=== PATIENT | female | born 1960 | race African-American/Black ===

== ENCOUNTER 2017-05-16 19:51 | Inpatient (IN) | payer BC ==
[~2017-05-16] VITALS: Ht 167.6 cm; Wt 82.0 kg
[2017-05-16 22:00] VITALS: BP 139/83; RESP 18
[2017-05-16 23:00] VITALS: BP 136/75; RESP 18
[2017-05-16 23:26] VITALS: Ht 167.6 cm; Wt 82.0 kg
[2017-05-17 02:00] VITALS: BP 134/78; RESP 18
[2017-05-17] MEDS ORDERED: LACTULOSE 30ML CUP PO PRN (02:30)
[2017-05-17] MEDS ORDERED: BISACODYL 10 MG SUPP PR PRN (02:30)
[2017-05-17] MEDS ORDERED: MAGNESIUM HYDROXIDE 30ML CUP PO PRN (02:30)
[2017-05-17] MEDS ORDERED: ACETAMINOPHEN 325 MG TAB PO PRN (02:30)
[2017-05-17] MEDS ORDERED: NITROGLYCERIN (SL) 0.4 MG TAB SL PRN (03:00)
[2017-05-17] MEDS ORDERED: HYDROCODONE/APAP (5/325) TAB PO PRN ×2 (04:00)
[2017-05-17 05:34] LABS: ADD UMIC NO; UR ASCORBIC ACID NEGATIVE (NEGATIVE); UR BILIRUBIN (Dip) NEGATIVE (NEGATIVE); UR BLOOD (Dip) NEGATIVE (NEGATIVE); UR CLARITY CLEAR (CLEAR); UR COLOR YELLOW (YELLOW); UR GLUCOSE (Dip) NEGATIVE (NEGATIVE); UR KETONES (Dip) NEGATIVE (NEGATIVE); UR LEUKOCYTE ESTERASE (Dip) NEGATIVE Leu/ul (NEGATIVE); UR NITRITE (Dip) NEGATIVE (NEGATIVE); UR SPECIFIC GRAVITY (Dip) 1.015 (1.003-1.030); UR TOTAL PROTEIN (Dip) NEGATIVE (NEGATIVE); UR UROBILINOGEN (Dip) 2+ mg/dL (NEGATIVE)
[2017-05-17] MEDS: PANTOPRAZOLE (EC) 40 MG TAB PO SCH (06:41)
[2017-05-17] MEDS: FUROSEMIDE 40 MG TAB PO SCH (06:41)
[2017-05-17 07:27] LABS: BASOPHIL # 0.1 10^3/ul (0.0-0.1); BASOPHILS % 0.7 % (0.0-2.0); EOSINOPHILS # 0.3 10^3/ul (0.0-0.5); EOSINOPHILS % 2.7 % (0.0-7.0); HEMOGLOBIN 11.7 g/dl (12.0-16.0); LYMPHOCYTES # 1.6 10^3/ul (0.8-2.9); LYMPHOCYTES % 13.1 % (15.0-51.0); MEAN CORPUSCULAR HEMOGLOBIN 22.5 pg (29.0-33.0); MEAN CORPUSCULAR HGB CONC 30.8 g/dl (32.0-37.0); MEAN CORPUSCULAR VOLUME 73.2 fl (82.0-101.0); MEAN PLATELET VOLUME 9.6 fl (7.4-10.4); MONOCYTE # 1.1 10^3/ul (0.3-0.9); MONOCYTES % 8.9 % (0.0-11.0); NEUTROPHIL # 8.8 10^3/ul (1.6-7.5); PLATELET COUNT 633 10^3/UL (140-415); RED BLOOD COUNT 5.19 10^6/ul (4.20-5.40); RED CELL DISTRIBUTION WIDTH 18.2 % (11.5-14.5); WHITE BLOOD COUNT 11.9 10^3/ul (4.8-10.8)
[2017-05-17 07:30] VITALS: BP_SYST 177; BP_DIAS 102; BP_DIAS 90; PULSE 100; RESP 20
[2017-05-17] MEDS ORDERED: ZOLPIDEM 5 MG TAB PO PRN (08:00)
[2017-05-17 08:06] LABS: ALBUMIN 3.7 g/dl (3.3-4.9); ALBUMIN/GLOBULIN RATIO 0.77; BILIRUBIN,INDIRECT 0.3 mg/dl (0-1.1); BILIRUBIN,TOTAL 0.3 mg/dl (0.2-1.3); CALCIUM 9.8 mg/dl (8.4-10.2); CREATININE 0.72 mg/dl (0.44-1.00); POTASSIUM 3.9 mmol/L (3.5-5.1); TOTAL PROTEIN 8.5 g/dl (6.1-8.1)
[2017-05-17] MEDS: PREGABALIN 25 MG CAP PO SCH ×2 (08:21→20:16)
[2017-05-17] MEDS: CLOPIDOGREL 75 MG TAB PO SCH (08:21)
[2017-05-17] MEDS: LOSARTAN 50 MG TAB PO SCH (08:21)
[2017-05-17] MEDS: DOCUSATE SODIUM 100 MG CAP PO SCH ×2 (08:22→20:16)
[2017-05-17] MEDS: APIXABAN 5 MG TABLET PO SCH ×2 (08:22→20:18)
[2017-05-17] MEDS: METOPROLOL (XL) 25 MG TAB PO SCH ×2 (08:22→20:17)
[2017-05-17] MEDS: LIDOCAINE 5% PATCH TD SCH (10:30)
[2017-05-17] MEDS: DILTIAZEM (CD) 180 MG CAP PO SCH (12:48)
[2017-05-17] MEDS: HYDROCODONE/APAP (5/325) TAB PO PRN ×2 (12:48→20:17)
--- NOTE | 2017-05-17 13:34 | CONS ---
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 ACTIVE COMORBIDITIES: 1. Atrial fibrillation. 2. Hypertension. 3. Pancreatitis. 4. History of stomach cancer. 5. History of cervical cancer. 6. Impairments in self-care, mobility and cognition. HISTORY OF PRESENT ILLNESS: The patient is a very pleasant 57-year-old female with a history of mul tiple medical comorbidities who was noted to have significant left-sided weakness, and difficulty wi th speech. A head CT was performed and the patient was noted to have right frontal infarct. The patient did require mechanical ventilation. The patient was eventually extubated. Patient note d to have significant impairments in self-care and mobility as compared to baseline. The patient de la rosa s been cleared to transfer to the rehabilitation unit for comprehensive interdisciplinary rehab care . FUNCTIONAL HISTORY: Prior to recent events, she was independent in self-care tasks and mobility. C urrently, the patient requires total assist for self-care activities, maximal assist to total assist for mobility tasks. I have reviewed the preadmission screen and the patient's current functional status is consistent wi th the preadmission screen. SOCIAL HISTORY: The patient lives at home with her and hopes to return there upon discharge . PAST MEDICAL HISTORY: 1. Atrial fibrillation. 2. Pancreatitis. 3. Stomach cancer. 4. Cervical cancer. 5. Rheumatic fever. 6. Questionable history of coronary artery disease. CURRENT MEDICATIONS: 1. Eliquis 25 mg p.o. b.i.d. 2. Lipitor 40 mg p.o. at bedtime. 3. Plavix 75 mg p.o. daily. 4. Cardizem-CD 180 p.o. daily. 5. Lasix 40 mg p.o. daily. 6. Cozaar 10 mg p.o. daily. 7. Metoprolol XL 25 mg p.o. b.i.d. 8. Protonix 40 mg p.o. daily. ALLERGIES: THE PATIENT WITH NO KNOWN DRUG ALLERGIES. PHYSICAL EXAMINATION: VITAL SIGNS: The patient is currently afebrile with stable vital signs. HEENT: The extraocular motions appear intact. The patient with decreased nasolabial fold. Orophar ynx clear. NECK: Supple. LUNGS: Clear anteriorly. CARDIAC: S1, S2. ABDOMEN: Soft, nontender, positive bowel sounds. NEUROLOGIC: She is awake and alert. She is oriented to person and hospital. She will follow simpl e 1-step commands. She has good strength in the right upper and lower extremity. She has flaccid l eft upper extremity. She has antigravity strength in the left lower extremity. PLAN: The patient has been admitted for comprehensive interdisciplinary acute rehab and is anticipa rocio to tolerate 3 hours of daily therapy in divided doses for at least 5/7 days a week. The treatme nt plan will include: 1. Physical therapy to focus on bed mobility, transfers, and household ambulation with the goal of having the patient reach standby assist level. 2. Occupational therapy to focus on hygiene, grooming, dressing, bathing, and toileting activities with the goal of having the patient reach a min to standby assist level. 3. Speech therapy for full cognitive assessment and retraining in addition to dysphagia management with the goal of having the patient return to baseline cognition and meet nutritional needs by mouth . 4. Rehabilitation nursing for carryover of therapeutic interventions, the goal of [place] and bladder, and the goal of patient and family education with regards to the aforementioned issue s. BARRIER: Weakness. INTERVENTION FOR BARRIER: Interdisciplinary approach. ESTIMATED LENGTH OF STAY: Fourteen days. DISPOSITION GOAL: Home. I acknowledge that I performed a full physical examination on this patient within 24 hours of admiss ion to the rehabilitation unit. I believe the patient is a good candidate for comprehensive interdi sciplinary rehab care and is anticipated to make reasonable goals in a reasonable period of time as outlined above. Dictated By: LEILA VO/HERON Conf#: [id number] DID#: [id number]
[2017-05-17 19:50] VITALS: BP 121/81; RESP 18
[2017-05-17] MEDS: SENNA TAB PO SCH (20:16)
[2017-05-17] MEDS: ATORVASTATIN 40 MG TAB PO SCH (20:16)
[2017-05-18 01:56] VITALS: BP 97/64; RESP 19
[2017-05-18] MEDS: HYDROCODONE/APAP (5/325) TAB PO PRN ×3 (05:09→19:52)
[2017-05-18] MEDS: FUROSEMIDE 40 MG TAB PO SCH (05:18)
[2017-05-18] MEDS: PANTOPRAZOLE (EC) 40 MG TAB PO SCH (05:18)
[2017-05-18 07:31] LABS: ABNORMAL IP MESSAGE 1; BASOPHIL # 0.1 10^3/ul (0.0-0.1); BASOPHILS % 0.6 % (0.0-2.0); EOSINOPHILS # 0.1 10^3/ul (0.0-0.5); EOSINOPHILS % 0.8 % (0.0-7.0); HEMATOCRIT 37.8 % (37.0-47.0); HEMOGLOBIN 11.5 g/dl (12.0-16.0); LYMPHOCYTES # 1.9 10^3/ul (0.8-2.9); LYMPHOCYTES % 11.9 % (15.0-51.0); MEAN CORPUSCULAR HEMOGLOBIN 22.1 pg (29.0-33.0); MEAN CORPUSCULAR HGB CONC 30.4 g/dl (32.0-37.0); MEAN CORPUSCULAR VOLUME 72.7 fl (82.0-101.0); MEAN PLATELET VOLUME 10.3 fl (7.4-10.4); MONOCYTE # 1.6 10^3/ul (0.3-0.9); MONOCYTES % 10.2 % (0.0-11.0); NEUTROPHIL # 12.2 10^3/ul (1.6-7.5); NEUTROPHILS % 75.9 % (39.0-77.0); PLATELET COUNT 659 10^3/UL (140-415)
[2017-05-18 07:37] LABS: POSITIVE DIFF @See below
[2017-05-18 07:48] LABS: CALCIUM 9.7 mg/dl (8.4-10.2); CREATININE 1.38 mg/dl (0.44-1.00); MAGNESIUM 1.8 mg/dl (1.7-2.5); PHOSPHORUS 4.2 mg/dl (2.5-4.9); POTASSIUM 3.7 mmol/L (3.5-5.1)
[2017-05-18 08:00] VITALS: BP 121/73; PULSE 95; RESP 18
[2017-05-18] MEDS: DOCUSATE SODIUM 100 MG CAP PO SCH ×2 (09:06→20:20)
[2017-05-18] MEDS: PREGABALIN 25 MG CAP PO SCH ×2 (09:06→20:20)
[2017-05-18] MEDS: CLOPIDOGREL 75 MG TAB PO SCH (09:06)
[2017-05-18] MEDS: APIXABAN 5 MG TABLET PO SCH ×2 (09:07→20:21)
[2017-05-18] MEDS: LOSARTAN 50 MG TAB PO SCH (09:08)
[2017-05-18] MEDS: METOPROLOL (XL) 25 MG TAB PO SCH ×2 (09:08→20:21)
[2017-05-18] MEDS: DILTIAZEM (CD) 180 MG CAP PO SCH (09:09)
[2017-05-18] MEDS: LIDOCAINE 5% PATCH TD SCH (09:13)
[2017-05-18] MEDS: ACETAMINOPHEN 325 MG TAB PO PRN (12:35)
[2017-05-18 15:32] VITALS: BP 121/73; RESP 18
--- NOTE | 2017-05-18 15:38 | PN ---
DATE: 05/18/2017 SUBJECTIVE: The patient is stable. No events overnight. The patient's pain is better controlled. No other events noted. OBJECTIVE: VITAL SIGNS: Blood pressure is 121/73, temperature 98.3, pulse 95, respiration 18. HEENT: Head is normocephalic. NECK: Supple. HEART: Regular rate. LUNGS: Show diminished breath sounds at base. ABDOMEN: Soft, nontender to palpation without rebound or guarding. EXTREMITIES: Negative for clubbing, cyanosis, no edema. DERMATOLOGIC: No rashes. MUSCULOSKELETAL: No joint effusions. NEUROLOGIC: No change in exam. MEDICATIONS: The patient's medications are reviewed. LABORATORY DATA: Shows white count 16.9, hemoglobin 9.5, platelet count is 659. Sodium 140, potass ium 3.7, BUN 17, creatinine 1.38. ASSESSMENT AND PLAN: This is a 57-year-old female who presents with: 1. Acute cerebrovascular accident with left-sided hemiparesis. The patient is currently stable. C ontdulce maria current medical management. Continue physical therapy. 2. Atrial fibrillation, currently rate controlled. Continue medical management with Eliquis and Ca rdizem. 3. Hypertension, well controlled. The patient now appears to be hypotensive. We will place parameters on blood pressure medications. Will hold Lasix and Cozaar. 4. Nonoliguric acute kidney injury with previously normal baseline creatinine. Etiology is likely hemodynamics. Will hold late diuretics and Losartan, monitor closely. 5. Leukocytosis, etiology unclear, possibly reactive. Will check a UA with microanalysis, urine cu ltures and chest x-ray. We will also check a procalcitonin level, place an ID consult for evaluatio n. Defer antibiotic therapy at this time. 6. Gastrointestinal and deep venous thrombosis prophylaxis. 7. Neuropathy. Continue Lyrica. 8. Chronic pain syndrome. Continue current pain regimen. 9. History of coronary artery disease. Continue current medical management. 10. History of stomach and cervical cancer. Dictated By: CHRISTOPHER WISEMAN/HERON Conf#: [id number] DID#: [id number]
--- NOTE | 2017-05-18 18:42 | RADRPT ---
PROCEDURE: XR Chest. CLINICAL INDICATION: Cough. TECHNIQUE: PA and lateral chest x-ray. COMPARISON: 02/18/2009 FINDINGS: There are prominent bronchovascular and interstitial lung markings. There is no focal consolidation. There is no evidence of pleural effusion. No pneumothorax identified. The heart size is large. The cardiomediastinal silhouette is otherwise unremarkable. The osseous structures are unremarkable. The soft tissues are within normal limits. IMPRESSION: 1. Prominent bronchovascular and interstitial lung markings. Differential diagnosis includes bronc hitis, interstitial edema, viral pneumonia, atypical pneumonia and interstitial lung disease. 2. Cardiomegaly. With a prominent lung markings, consider interstitial edema in the setting of mariola y CHF. 3. No evidence of lobar pneumonia. RPTAT: QQ .Khadar Farris MD, MD Date Time Electronically viewed and signed by .Khadar Farris MD, on 05/18/2017 18:42 .M/
[2017-05-18 20:00] VITALS: BP 109/73; RESP 18
[2017-05-18] MEDS: ATORVASTATIN 40 MG TAB PO SCH (20:21)
[2017-05-18] MEDS: SENNA TAB PO SCH (20:21)
--- NOTE | 2017-05-19 01:15 | CONS ---
DATE OF ADMISSION: 05/16/2017 DATE OF CONSULTATION: 05/18/2017 TYPE OF CONSULTATION: Infectious Disease. REASON FOR CONSULTATION: Antibiotic management. HISTORY OF PRESENT ILLNESS: Debo Shelton is a 57-year-old female with a history of multiple medica l problems who was noted to have significant left-sided weakness and difficulty with speech. She wa s found to have a right frontal infarct cerebrovascular accident with left-sided weakness. Past problems include: 1. Atrial fibrillation. 2. Hypertension. 3. History of pancreatitis. 4. History of stomach cancer. 5. History of cervical cancer. She now comes to the rehab with CVA and left-sided weakness as well as difficulty with speech. She did require mechanical ventilation, was eventually extubated. She has significant impairments in self-care and mobility. On admission, her white count was 11.9, H an d H 11.7 and 38, platelet count 633,000. On 05/18/2017, white count went up to 16,000. Her BUN and creatinine 17/1.38. Urine: 2+ urobilinogen, negative leukocyte esterase negative hemoglobin. Annette [facility] x-ray: No active cardiopulmonary disease. PAST MEDICAL HISTORY: Operations as outlined. FAMILY HISTORY: Noncontributory. SOCIAL HISTORY: She does not smoke, drink or abuse drugs. ALLERGIES: NONE TO PENICILLIN, SULFA OR FOODS. MEDICATIONS: Per chart. REVIEW OF SYSTEMS: As per HPI. PHYSICAL EXAMINATION: GENERAL: The patient is a well-developed, well-nourished female who is alert, responsive, in no acu te distress. VITAL SIGNS: Stable. She is afebrile. SKIN: Without generalized rash. HEENT: Within normal limits. NECK: Supple. LYMPH NODES: None palpable. CHEST: Decreased breath sounds at the bases. HEART: Without murmur or gallop. ABDOMEN: Soft, nontender, without organosplenomegaly or masses. EXTREMITIES: Without cyanosis, clubbing, or edema. RECTAL AND GENITAL: Exams deferred. NEUROLOGIC: The patient is oriented to person and to place. She has good strength in the right upp er and lower extremities. Flaccid left upper extremity and weak lower extremity. IMPRESSION AND PLAN: The patient has leukocytosis, etiology of which is unclear. A UA was ordered, urine culture and chest x-ray, also a procalcitonin level. I am going to hold off antibiotics at t his point. Her urine culture is negative at 24 hours. I will dictate my findings to Dr. Ernesto Martínez. Thank you for this consultation. Dictated By: JOSÉ DIAZ MD, JD/HERON Conf#: [id number] DID#: [id number]
[2017-05-19 02:00] VITALS: BP 111/74; RESP 18
[2017-05-19] MEDS: HYDROCODONE/APAP (5/325) TAB PO PRN ×2 (02:51→18:53)
[2017-05-19] MEDS: PANTOPRAZOLE (EC) 40 MG TAB PO SCH (06:28)
[2017-05-19 07:30] VITALS: BP 129/81; RESP 20
[2017-05-19 07:52] LABS: ABNORMAL IP MESSAGE 1; BASOPHIL # 0.1 10^3/ul (0.0-0.1); BASOPHILS % 0.6 % (0.0-2.0); EOSINOPHILS # 0.3 10^3/ul (0.0-0.5); HEMOGLOBIN 11.9 g/dl (12.0-16.0); LYMPHOCYTES % 14.1 % (15.0-51.0); MEAN CORPUSCULAR HEMOGLOBIN 22.6 pg (29.0-33.0); MEAN CORPUSCULAR HGB CONC 30.5 g/dl (32.0-37.0); MEAN CORPUSCULAR VOLUME 74.1 fl (82.0-101.0); MONOCYTE # 1.6 10^3/ul (0.3-0.9); MONOCYTES % 11.2 % (0.0-11.0); NEUTROPHILS % 71.6 % (39.0-77.0); RED BLOOD COUNT 5.26 10^6/ul (4.20-5.40); RED CELL DISTRIBUTION WIDTH 18.8 % (11.5-14.5); WHITE BLOOD COUNT 13.9 10^3/ul (4.8-10.8)
--- NOTE | 2017-05-19 08:04 | HP ---
DATE OF ADMISSION: 05/16/2017 CHIEF COMPLAINT: Status post cerebrovascular accident with left-sided weakness. HISTORY OF PRESENT ILLNESS: This is a 57-year-old female with a past medical history of A-Fib, history of pancreatitis, history of stomach cancer, cervical cancer, history of obesity, history of coronary disease with stent, who presented to an outside hospital with apparent cva. The patient presented to an outside hospital with facial droop with difficulty speaking and aphasia. The patient was brought into the emergency room and was subsequently intubated. The patient was then found to be in A-fib with rapid rate. The patient had a CT scan which showed evidence of a subcortical with white matter infarct, negative for any acute hemorrhage. The patient was admitted to the intensive care unit bed. The patient was seen by curator natural history museum and filler room attendant. Neurosurgery was also consulted. The patient was eventually clinically improved and was extubated. Following extubation, the patient, however, had significant decline of her premorbid condition and was recommended for continued care. Please note also during the hospital course, the patient was on antibiotic therapy for a leukocytosis, unclear if there was pneumonia. Upon my evaluation of the patient at this time, is describing of burning pain running down the left side of her body. Denies any muscle stiffness. PAST MEDICAL HISTORY: As stated above, history of A-Fib, history of coronary artery disease, history of pancreatitis, stomach cancer, cervical cancer, obesity,. PAST SURGICAL HISTORY: No major surgeries noted. FAMILY HISTORY: Noncontributory. SOCIAL HISTORY: Does not actively drink, smoke or do drugs. ALLERGIES: ASPIRIN. MEDICATIONS: Have been reviewed. REVIEW OF SYSTEMS: A 14-point review of systems was conducted. Pertinent positives stated in the HPI, otherwise negative. PHYSICAL EXAMINATION: VITAL SIGNS: Blood pressure is 134/78, respiration 16, pulse 72, temperature 98.5. HEENT: Head is normocephalic. NECK: Supple. HEART: Regular rate. LUNGS: Show diminished breath sounds at the base. ABDOMEN: Soft, nontender to palpation, rebound or guarding. EXTREMITIES: No edema. DERMATOLOGIC: No rashes. MUSCULOSKELETAL: joint effusion NEUROLOGIC: left sided weakness LABORATORY DATA: reviewed ASSESSMENT AND PLAN: This is a 57-year-old female with: 1. Acute cerebrovascular accident with left-sided hemiparesis. Plan is for the patient to continue Plavix continue Eliquis. Continue Lipitor therapy ___ __. 2. Atrial fibrillation. The patient's symptoms are rate controlled. Eliquis. 3. Neuropathy. will start lyrica 4. htn-cont bp meds 5. Status post respiratory failure. 6. Leukocytosis, etiology unclear. therapy. We will continue to monitor serial CBCs. 7. History of stomach cancer and cervical cancer. 8. History of pancreatitis. 9. Gastrointestinal and deep venous thrombosis prophylaxis with PPI and Eliquis. i spent 25 minutes of [id number] time with the patient . The patient is FULL CODE. Dictated By: CHRISTOPHER WISEMAN/HERON Conf#: [id number] DID#: [id number] MTDD
[2017-05-19 08:05] LABS: PLATELET COUNT 660 10^3/UL (140-415); POSITIVE DIFF @See below
[2017-05-19 08:12] LABS: CALCIUM 9.5 mg/dl (8.4-10.2); CREATININE 1.43 mg/dl (0.44-1.00); PHOSPHORUS 4.7 mg/dl (2.5-4.9); POTASSIUM 3.7 mmol/L (3.5-5.1)
[2017-05-19] MEDS: DOCUSATE SODIUM 100 MG CAP PO SCH ×2 (09:14→21:52)
[2017-05-19] MEDS: DILTIAZEM (CD) 180 MG CAP PO SCH (09:14)
[2017-05-19] MEDS: APIXABAN 5 MG TABLET PO SCH ×2 (09:14→21:53)
[2017-05-19] MEDS: CLOPIDOGREL 75 MG TAB PO SCH (09:15)
[2017-05-19] MEDS: PREGABALIN 25 MG CAP PO SCH ×2 (09:15→21:53)
[2017-05-19] MEDS: METOPROLOL (XL) 25 MG TAB PO SCH ×2 (09:15→21:53)
--- NOTE | 2017-05-19 09:15 | PN ---
DATE: 05/19/2017 SUBJECTIVE: The patient is stable. No events overnight. No fevers, chills, nausea, vomiting, no s hortness of breath. OBJECTIVE: VITAL SIGNS: Blood pressure 111/74, respiration 18, pulse 66, temperature 98.0. HEENT: Head is normocephalic. NECK: Supple. HEART: Regular rate. LUNGS: Show diminished breath sounds at base. ABDOMEN: Soft, nontender to palpation without rebound or guarding. EXTREMITIES: Negative for clubbing, cyanosis, or edema. DERMATOLOGIC: No rashes. MUSCULOSKELETAL: No joint effusions. NEUROLOGIC: No change in exam. MEDICATIONS: The patient's medications have been reviewed. LABORATORY DATA: Showed sodium 141, potassium 3.7, BUN 21, creatinine 1.43. White count 13.9, hemo globin 11.9, hematocrit 39.0, platelet count is 660. IMAGING: The patient's chest x-ray shows no evidence of pneumonia, prominent bronchial interstitial lung markings, cardiomegaly, CHF. ASSESSMENT AND PLAN: 1. Acute cerebrovascular accident with left-sided hemiparesis. The patient is currently stable. C ontinue medical management. 2. Atrial fibrillation, rate controlled. Continue Eliquis and Cardizem. 3. Hypertension, controlled. Continue current blood pressure regimen. 4. Nonoliguric acute kidney injury with previously normal baseline creatinine. Etiology is seconda ry to hemodynamics from volume depletion. The patient's urinalysis shows a FENa of less than 1%, co nsistent with a prerenal state. Plan is to continue to hold diuretics and Losartan, continue to enc ourage p.o. intake and monitor. 5. Leukocytosis, etiology is unclear. Questionable reactive leukemoid reaction versus a viral infe ction. The patient's urinalysis was bland, chest x-ray shows no definitive evidence of pneumonia. Continue to monitor closely. Appreciate ID evaluation. 6. Neuropathy. Continue Lyrica. 7. Chronic pain syndrome. Continue current pain regimen. 8. History of coronary artery disease. Continue medical management. 9. History of stomach and cervical cancer. 10. Gastrointestinal and deep venous thrombosis prophylaxis. 11. Questionable interstitial edema. We will continue to monitor and consider cardiology evaluatio n. Dictated By: CHRISTOPHER WISEMAN/HERON Conf#: [id number] [facility]#: [id number]
[2017-05-19] MEDS: LIDOCAINE 5% PATCH TD SCH (09:16)
--- NOTE | 2017-05-19 12:30 | CONS ---
Date/Time of Note Date/Time of Note DATE: 05/19/17 TIME: 12:30 Consult Date/Type/Reason Admit Date/Time May 16, 2017 at 22:06 Initial Consult Date Objective Vital Signs Date Time Temp Pulse Resp B/P Pulse Ox O2 Delivery O2 Flow Rate FiO2 05/19/17 07:30 98.8 65 20 129/81 95 05/18/17 08:00 Room Air Intake and Output 05/18/17 05/18/17 05/19/17 15:00 23:00 07:00 Intake Total 1200 ml 1200 ml Output Total 600 ml 800 ml Balance 600 ml 400 ml INTERDISCIPLINARY TEAM CONFERENCE BOWEL- Cont/incont BLADDER-Cont /incont SKIN- intact OT- DRESSING-total BATHING-max/total TOILETING-max/total PT- BED MOBILITY-max/dep TRANSFERS-max/dep W.C. MOBILITY-max/dep SPEECH- COGNITION-max DYPHAGIA-mech thin A/P- Interdisciplinary team conference held today. Please see interdisciplinary sheet. Working toward alison on 05/30 with post discharge follow up of physical therapy, occupational therapy, and speech therapy. Results/Medications Result Diagram: 05/19/1722 05/19/17 0622 Results 24 hrs Laboratory Tests Test 05/18/17 14:00 05/19/17 01:30 05/19/17 06:22 Urine Random Creatinine 65.74 144.97 Urine Random Sodium 120 H 28 L Urine Total Protein 11.0 10.0 White Blood Count 13.9 H Red Blood Count 5.26 Hemoglobin 11.9 L Hematocrit 39.0 Mean Corpuscular Volume 74.1 L Mean Corpuscular Hemoglobin 22.6 L Mean Corpuscular Hemoglobin Concent 30.5 L Red Cell Distribution Width 18.8 H Platelet Count 660 H Mean Platelet Volume 10.0 Neutrophils % 71.6 Lymphocytes % 14.1 L Monocytes % 11.2 H Eosinophils % 2.0 Basophils % 0.6 Nucleated Red Blood Cells % 0.0 Neutrophils # 10.0 H Lymphocytes # 2.0 Monocytes # 1.6 H Eosinophils # 0.3 Basophils # 0.1 Nucleated Red Blood Cells # 0.0 Sodium Level 141 Potassium Level 3.7 Chloride Level 100 Carbon Dioxide Level 28 Anion Gap 17 H Blood Urea Nitrogen 21 H Creatinine 1.43 H Glucose Level 116 Calcium Level 9.5 Phosphorus Level 4.7 Magnesium Level 2.0 Medications Current Medications Docusate Sodium (Colace) 100 mg BID PO Last administered on 05/19/17 09:14; Admin Dose 100 MG; Start 05/17/17 at 09:00 Senna (Senokot) 1 tab HS PO Last administered on 05/18/17 20:21; Admin Dose 1 TAB; Start 05/17/17 at 21:00 Bisacodyl (Dulcolax Supp) 10 mg DAILY PRN PA CONSTIPATION; Start 05/17/17 at 02:30 Magnesium Hydroxide (Milk Of Mag) 30 ml BID PRN PO CONSTIPATION; Start at 02:30 Lactulose (Enulose) 20 gm DAILY PRN PO CONSTIPATION; Start 05/17/17 at 02:30 Acetaminophen (Tylenol Tab) 650 mg Q4H PRN PO PAIN Last administered on 12:35; Admin Dose 650 MG; Start 05/17/17 at 03:00 Apixaban (Eliquis) 2.5 mg BID PO Last administered on 05/19/17 09:14; Admin Dose 2.5 MG; Start 05/17/17 at 09:00 Atorvastatin Calcium (Lipitor) 40 mg DAILY@21 PO Last administered on 20:21; Admin Dose 40 MG; Start 05/17/17 at 21:00 Clopidogrel Bisulfate (plaVIX) 75 mg DAILY PO Last administered on 05/19/17 09:15; Admin Dose 75 MG; Start 05/17/17 at 09:00 Diltiazem HCl (Cardizem Cd) 180 mg DAILY PO Last administered on 05/19/17 09: 14; Admin Dose 180 MG; Start 05/17/17 at 09:00 Pantoprazole (Protonix Tab) 40 mg DAILY@06 PO Last administered on 05/19/17 06:28; Admin Dose 40 MG; Start 05/17/17 at 06:00 Nitroglycerin (Nitroglycerin (Sl Tab) 0.4 Mg) 1 tab Q5M PRN SL CHEST PAIN; Start 05/17/17 at 03:00 Metoprolol Succinate (Toprol Xl) 25 mg BID PO Last administered on 05/19/17 09:15; Admin Dose 25 MG; Start 05/17/17 at 09:00 Losartan Potassium (Cozaar) 100 mg DAILY PO Last administered on 05/18/17 09: 08; Admin Dose 100 MG; Start 05/17/17 at 09:00; Status Future Hold Pregabalin (Lyrica) 25 mg BID PO Last administered on 05/19/17 09:15; Admin Dose 25 MG; Start 05/17/17 at 09:00 Acetaminophen/ Hydrocodone Bitart ([place] (5/325)) 1 tab Q4 PRN PO PAIN Last administered on 05/19/17 02:51; Admin Dose 1 TAB; Start 05/17/17 at 09:00 Zolpidem Tartrate (Ambien) 5 mg HS PRN PO INSOMNIA; Start 05/17/17 at 08:00 Lidocaine (Lidoderm) 1 patch DAILY TD Last administered on 05/19/17 09:16; Admin Dose 1 PATCH; Start 05/17/17 at 10:30 LEILA STEIN MD May 19, 2017 12:30
--- NOTE | 2017-05-19 13:54 | PN ---
DATE: 05/19/2017 SUBJECTIVE: Patient is awake, looks comfortable, denies pain, no fevers. Vital signs stable. LABORATORY DATA: WBC today decreased to 13.9, no shift, no bands. BUN 21, creatinine 1.43. DIAGNOSTICS: Chest x-ray from yesterday revealed a prominent bronchovascular and interstitial lung markings, no evidence of lobar pneumonia, cardiomegaly, questionable early CHF. PHYSICAL EXAMINATION: GENERAL: Obese, well-developed, middle-aged -[place] woman who is awake, in no distress. HEENT: Head atraumatic, normocephalic. Sclerae anicteric. Buccal mucosa dry. NECK: Supple. CHEST: Rise symmetrical. Breath sounds diminished to bases. HEART: S1, S2. ABDOMEN: Soft, bowel tones present. EXTREMITIES: Without cyanosis. ASSESSMENT: 1. Systemic inflammatory response syndrome with leukocytosis, no evidence of acute infectious proce ss. 2. Acute cerebrovascular accident. 3. Atrial fibrillation. 4. Hypertension. 5. History of stomach and cervical cancer. PLAN: Remains stable off antibiotics. Continue present care. Dictated By: KELSIE ANDERSEN BRIM WELT SEWING MACHINE OPERATOR for JOSÉ DIAZ MD NI/NTS Conf#: [id number] DID#: [id number]
[2017-05-19 14:00] VITALS: BP 93/63; RESP 18
[2017-05-19 16:00] VITALS: BP 102/56; PULSE 90
[2017-05-19 17:00] VITALS: BP 125/65; PULSE 88
[2017-05-19 20:00] VITALS: BP 100/60; RESP 18
[2017-05-19] MEDS: ATORVASTATIN 40 MG TAB PO SCH (21:52)
[2017-05-19] MEDS: SENNA TAB PO SCH (21:52)
[2017-05-20 02:25] VITALS: BP 137/80; RESP 18
[2017-05-20] MEDS: HYDROCODONE/APAP (5/325) TAB PO PRN (02:50)
[2017-05-20] MEDS: PANTOPRAZOLE (EC) 40 MG TAB PO SCH (05:21)
[2017-05-20 06:26] LABS: BASOPHIL # 0.1 10^3/ul (0.0-0.1); BASOPHILS % 0.8 % (0.0-2.0); EOSINOPHILS # 0.3 10^3/ul (0.0-0.5); EOSINOPHILS % 2.3 % (0.0-7.0); HEMATOCRIT 35.8 % (37.0-47.0); HEMOGLOBIN 11.3 g/dl (12.0-16.0); LYMPHOCYTES # 1.9 10^3/ul (0.8-2.9); LYMPHOCYTES % 17.8 % (15.0-51.0); MEAN CORPUSCULAR HEMOGLOBIN 22.8 pg (29.0-33.0); MEAN CORPUSCULAR HGB CONC 31.6 g/dl (32.0-37.0); MEAN CORPUSCULAR VOLUME 72.3 fl (82.0-101.0); MEAN PLATELET VOLUME 9.8 fl (7.4-10.4); MONOCYTE # 1.4 10^3/ul (0.3-0.9); MONOCYTES % 13.3 % (0.0-11.0); NEUTROPHIL # 7.1 10^3/ul (1.6-7.5); NEUTROPHILS % 65.3 % (39.0-77.0); PLATELET COUNT 677 10^3/UL (140-415); RED BLOOD COUNT 4.95 10^6/ul (4.20-5.40); RED CELL DISTRIBUTION WIDTH 18.6 % (11.5-14.5); WHITE BLOOD COUNT 10.8 10^3/ul (4.8-10.8)
[2017-05-20 07:00] VITALS: BP 121/74; RESP 18
[2017-05-20 07:09] LABS: CALCIUM 9.4 mg/dl (8.4-10.2); CREATININE 1.21 mg/dl (0.44-1.00); MAGNESIUM 2.2 mg/dl (1.7-2.5); PHOSPHORUS 4.2 mg/dl (2.5-4.9); POTASSIUM 3.9 mmol/L (3.5-5.1)
[2017-05-20] MEDS: DOCUSATE SODIUM 100 MG CAP PO SCH ×2 (08:23→20:54)
[2017-05-20] MEDS: DILTIAZEM (CD) 180 MG CAP PO SCH (08:23)
[2017-05-20] MEDS: METOPROLOL (XL) 25 MG TAB PO SCH ×2 (08:24→20:54)
[2017-05-20] MEDS: APIXABAN 5 MG TABLET PO SCH ×2 (08:24→20:53)
[2017-05-20] MEDS: LIDOCAINE 5% PATCH TD SCH (08:24)
[2017-05-20] MEDS: PREGABALIN 25 MG CAP PO SCH (08:24)
[2017-05-20] MEDS: CLOPIDOGREL 75 MG TAB PO SCH (08:24)
--- NOTE | 2017-05-20 09:16 | PN ---
DATE: 05/20/2017 SUBJECTIVE: The patient is stable. No events overnight. No fevers, chills, nausea, vomiting. OBJECTIVE: VITAL SIGNS: Blood pressure is 137/80, respiration 18, pulse 94, temperature 98.0. HEENT: Head is normocephalic. NECK: Supple. HEART: Regular rate. LUNGS: Show diminished breath sounds at base. ABDOMEN: Soft, nontender to palpation without rebound or guarding. EXTREMITIES: Negative for clubbing, cyanosis, edema. DERMATOLOGIC: No rashes. MUSCULOSKELETAL: No joint effusions. NEUROLOGIC: No change in exam. MEDICATIONS: The patient's medications have been reviewed. LABORATORY DATA: Shows sodium 141, potassium 3.9, BUN 19, creatinine 1.21, white count 10.8, hemogl obin 9.3, hematocrit 35.8, platelet count 677. ASSESSMENT AND PLAN: 1. Acute cerebrovascular accident with left-sided hemiparesis. Patient is currently stable. Contin ue medical management. 2. Atrial fibrillation, rate controlled. Continue current treatment plan. 3. Hypertension, controlled. Continue current blood pressure regimen. 4. Nonoliguric acute kidney injury with previously normal baseline creatinine. Etiology is seconda ry to hemodynamics from diuretics and ARB effect. Renal function is improving after discontinuing L asix and Losartan. Continue to monitor. 5. Leukocytosis. Etiology is unclear. Continue to monitor. Appreciate ID's evaluation. 6. Neuropathy. Continue Lyrica. 7. Chronic pain syndrome. Continue current pain regimen. 8. History of coronary artery disease. Continue medical management. 9. History of stomach and cervical cancer. 10. Gastrointestinal and deep venous thrombosis prophylaxis. 11. Questionable interstitial edema. Continue to monitor. Dictated By: CHRISTOPHER WISEMAN/HERON Conf#: [id number] DID#: [id number]
--- NOTE | 2017-05-20 12:24 | CONS ---
Date/Time of Note Date/Time of Note DATE: 05/20/17 TIME: 12:13 Consult Date/Type/Reason Admit Date/Time May 16, 2017 at 22:06 Objective Vital Signs Date Time Temp Pulse Resp B/P Pulse Ox O2 Delivery O2 Flow Rate FiO2 05/20/17 07:00 97.9 86 18 121/74 97 05/18/17 08:00 Room Air Intake and Output 05/19/17 05/19/17 05/20/17 15:00 23:00 07:00 Intake Total 640 ml 1600 ml Output Total 600 ml Balance 640 ml 1000 ml pulm-cta max assist Results/Medications Result Diagram: 05/20/17 0603 05/20/17 0603 Results 24 hrs Laboratory Tests Test 05/20/17 06:03 White Blood Count 10.8 # Red Blood Count 4.95 Hemoglobin 11.3 L Hematocrit 35.8 L Mean Corpuscular Volume 72.3 L Mean Corpuscular Hemoglobin 22.8 L Mean Corpuscular Hemoglobin Concent 31.6 L Red Cell Distribution Width 18.6 H Platelet Count 677 H Mean Platelet Volume 9.8 Neutrophils % 65.3 Lymphocytes % 17.8 Monocytes % 13.3 H Eosinophils % 2.3 Basophils % 0.8 Nucleated Red Blood Cells % 0.0 Neutrophils # 7.1 Lymphocytes # 1.9 Monocytes # 1.4 H Eosinophils # 0.3 Basophils # 0.1 Nucleated Red Blood Cells # 0.0 Sodium Level 141 Potassium Level 3.9 Chloride Level 101 Carbon Dioxide Level 27 Anion Gap 17 H Blood Urea Nitrogen 19 Creatinine 1.21 H Glucose Level 121 Calcium Level 9.4 Phosphorus Level 4.2 Magnesium Level 2.2 Medications Current Medications Docusate Sodium (Colace) 100 mg BID PO Last administered on 05/20/17 08:23; Admin Dose 100 MG; Start 05/17/17 at 09:00 Senna (Senokot) 1 tab HS PO Last administered on 05/19/17 21:52; Admin Dose 1 TAB; Start 05/17/17 at 21:00 Bisacodyl (Dulcolax Supp) 10 mg DAILY PRN [place] CONSTIPATION; Start 05/17/17 at 02:30 Magnesium Hydroxide (Milk Of Mag) 30 ml BID PRN PO CONSTIPATION; Start at 02:30 Lactulose (Enulose) 20 gm DAILY PRN PO CONSTIPATION; Start 05/17/17 at 02:30 Acetaminophen (Tylenol Tab) 650 mg Q4H PRN PO PAIN Last administered on 12:35; Admin Dose 650 MG; Start 05/17/17 at 03:00 Apixaban (Eliquis) 2.5 mg BID PO Last administered on 05/20/17 08:24; Admin Dose 2.5 MG; Start 05/17/17 at 09:00 Atorvastatin Calcium (Lipitor) 40 mg DAILY@21 PO Last administered on 21:52; Admin Dose 40 MG; Start 05/17/17 at 21:00 Clopidogrel Bisulfate (plaVIX) 75 mg DAILY PO Last administered on 05/20/17 08:24; Admin Dose 75 MG; Start 05/17/17 at 09:00 Diltiazem HCl (Cardizem Cd) 180 mg DAILY PO Last administered on 05/20/17 08: 23; Admin Dose 180 MG; Start 05/17/17 at 09:00 Pantoprazole (Protonix Tab) 40 mg DAILY@06 PO Last administered on 05/20/17 05:21; Admin Dose 40 MG; Start 05/17/17 at 06:00 Nitroglycerin (Nitroglycerin (Sl Tab) 0.4 Mg) 1 tab Q5M PRN SL CHEST PAIN; Start 05/17/17 at 03:00 Metoprolol Succinate (Toprol Xl) 25 mg BID PO Last administered on 05/20/17 08:24; Admin Dose 25 MG; Start 05/17/17 at 09:00 Losartan Potassium (Cozaar) 100 mg DAILY PO Last administered on 05/18/17 09: 08; Admin Dose 100 MG; Start 05/17/17 at 09:00; Status Future Hold Pregabalin (Lyrica) 25 mg BID PO Last administered on 05/20/17 08:24; Admin Dose 25 MG; Start 05/17/17 at 09:00 Zolpidem Tartrate (Ambien) 5 mg HS PRN PO INSOMNIA; Start 05/17/17 at 08:00 Lidocaine (Lidoderm) 1 patch DAILY TD Last administered on 05/20/17 08:24; Admin Dose 1 PATCH; Start 05/17/17 at 10:30 Assessment/Plan Additional Assessment/Plan rehab- 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 Activities as tolerated Cognition- will dc [place], due to increased confusion Atrial fibrillation. Hypertension. Pancreatitis. History of stomach cancer. History of cervical cancer. LEILA STEIN MD May 20, 2017 12:24
--- NOTE | 2017-05-20 14:18 | CONS ---
Date/Time of Note Date/Time of Note DATE: 05/20/17 TIME: 14:16 Consult Date/Type/Reason Admit Date/Time May 16, 2017 at 22:06 Initial Consult Date Reason for Consultation ID Objective Vital Signs Date Time Temp Pulse Resp B/P Pulse Ox O2 Delivery O2 Flow Rate FiO2 05/20/17 07:00 97.9 86 18 121/74 97 05/18/17 08:00 Room Air Intake and Output 05/19/17 05/19/17 05/20/17 14:59 22:59 06:59 Intake Total 640 ml 1600 ml Output Total 600 ml Balance 640 ml 1000 ml Results/Medications Result Diagram: 05/20/17 0603 05/20/17 0603 Results 24 hrs Laboratory Tests Test 05/20/17 06:03 White Blood Count 10.8 # Red Blood Count 4.95 Hemoglobin 11.3 L Hematocrit 35.8 L Mean Corpuscular Volume 72.3 L Mean Corpuscular Hemoglobin 22.8 L Mean Corpuscular Hemoglobin Concent 31.6 L Red Cell Distribution Width 18.6 H Platelet Count 677 H Mean Platelet Volume 9.8 Neutrophils % 65.3 Lymphocytes % 17.8 Monocytes % 13.3 H Eosinophils % 2.3 Basophils % 0.8 Nucleated Red Blood Cells % 0.0 Neutrophils # 7.1 Lymphocytes # 1.9 Monocytes # 1.4 H Eosinophils # 0.3 Basophils # 0.1 Nucleated Red Blood Cells # 0.0 Sodium Level 141 Potassium Level 3.9 Chloride Level 101 Carbon Dioxide Level 27 Anion Gap 17 H Blood Urea Nitrogen 19 Creatinine 1.21 H Glucose Level 121 Calcium Level 9.4 Phosphorus Level 4.2 Magnesium Level 2.2 Medications Current Medications Docusate Sodium (Colace) 100 mg BID PO Last administered on 05/20/17 08:23; Admin Dose 100 MG; Start 05/17/17 at 09:00 Senna (Senokot) 1 tab HS PO Last administered on 05/19/17 21:52; Admin Dose 1 TAB; Start 05/17/17 at 21:00 Bisacodyl (Dulcolax Supp) 10 mg DAILY PRN [place] CONSTIPATION; Start 05/17/17 at 02:30 Magnesium Hydroxide (Milk Of Mag) 30 ml BID PRN PO CONSTIPATION; Start at 02:30 Lactulose (Enulose) 20 gm DAILY PRN PO CONSTIPATION; Start 05/17/17 at 02:30 Acetaminophen (Tylenol Tab) 650 mg Q4H PRN PO PAIN Last administered on 12:35; Admin Dose 650 MG; Start 05/17/17 at 03:00 Apixaban (Eliquis) 2.5 mg BID PO Last administered on 05/20/17 08:24; Admin Dose 2.5 MG; Start 05/17/17 at 09:00 Atorvastatin Calcium (Lipitor) 40 mg DAILY@21 PO Last administered on 21:52; Admin Dose 40 MG; Start 05/17/17 at 21:00 Clopidogrel Bisulfate (plaVIX) 75 mg DAILY PO Last administered on 05/20/17 08:24; Admin Dose 75 MG; Start 05/17/17 at 09:00 Diltiazem HCl (Cardizem Cd) 180 mg DAILY PO Last administered on 05/20/17 08: 23; Admin Dose 180 MG; Start 05/17/17 at 09:00 Pantoprazole (Protonix Tab) 40 mg DAILY@06 PO Last administered on 05/20/17 05:21; Admin Dose 40 MG; Start 05/17/17 at 06:00 Nitroglycerin (Nitroglycerin (Sl Tab) 0.4 Mg) 1 tab Q5M PRN SL CHEST PAIN; Start 05/17/17 at 03:00 Metoprolol Succinate (Toprol Xl) 25 mg BID PO Last administered on 05/20/17 08:24; Admin Dose 25 MG; Start 05/17/17 at 09:00 Losartan Potassium (Cozaar) 100 mg DAILY PO Last administered on 05/18/17 09: 08; Admin Dose 100 MG; Start 05/17/17 at 09:00; Status Future Hold Zolpidem Tartrate (Ambien) 5 mg HS PRN PO INSOMNIA; Start 05/17/17 at 08:00 Lidocaine (Lidoderm) 1 patch DAILY TD Last administered on 05/20/17 08:24; Admin Dose 1 PATCH; Start 05/17/17 at 10:30 Assessment/Plan Chief Complaint/Hosp Course SUBJECTIVE: Patient is awake, looks comfortable, denies pain, no fevers. 3. DIAGNOSTICS: Chest x-ray from 05/18 revealed a prominent bronchovascular and interstitial lung markings, no evidence of lobar pneumonia, cardiomegaly, questionable early CHF. PHYSICAL EXAMINATION: GENERAL: Obese, well-developed, middle-aged -[place] woman who is awake , in no distress. HEENT: Head atraumatic, normocephalic. Sclerae anicteric. Buccal mucosa dry. NECK: Supple. CHEST: Rise symmetrical. Breath sounds diminished to bases. HEART: S1, S2. ABDOMEN: Soft, bowel tones present. EXTREMITIES: Without cyanosis. ASSESSMENT: 1. Systemic inflammatory response syndrome with leukocytosis 2. UTI 2. Acute cerebrovascular accident. 3. Atrial fibrillation. 4. Hypertension. 5. History of stomach and cervical cancer. PLAN: Remains stable, will start Cipro, await for final urine cx. Continue acute rehab. Problems: KELSIE ANDERSEN NP May 20, 2017 14:17
[2017-05-20] MEDS: ACETAMINOPHEN 325 MG TAB PO PRN ×2 (16:39→20:53)
[2017-05-20] MEDS: CIPROFLOXACIN 500 MG TAB PO SCH (17:57)
[2017-05-20 20:00] VITALS: BP 112/78; RESP 19
[2017-05-20 20:50] VITALS: BP 112/75; PULSE 95; RESP 16
[2017-05-20] MEDS: SENNA TAB PO SCH (20:53)
[2017-05-20] MEDS: ATORVASTATIN 40 MG TAB PO SCH (20:53)
[2017-05-21 02:00] VITALS: BP 127/80; RESP 19
[2017-05-21] MEDS: CIPROFLOXACIN 500 MG TAB PO SCH ×2 (06:00→18:43)
[2017-05-21] MEDS: PANTOPRAZOLE (EC) 40 MG TAB PO SCH (06:00)
[2017-05-21 07:00] VITALS: BP 129/83; RESP 18
[2017-05-21] MEDS ORDERED: ASA/ACETAMINOPHEN/CAFF TAB PO PRN ×4 (09:00→18:30)
[2017-05-21] MEDS ORDERED: HYDROCODONE/APAP (5/325) TAB PO PRN (09:00)
[2017-05-21] MEDS: DOCUSATE SODIUM 100 MG CAP PO SCH ×2 (09:09→20:55)
[2017-05-21] MEDS: APIXABAN 5 MG TABLET PO SCH ×2 (09:10→20:55)
[2017-05-21] MEDS: METOPROLOL (XL) 25 MG TAB PO SCH ×2 (09:10→20:56)
[2017-05-21] MEDS: CLOPIDOGREL 75 MG TAB PO SCH (09:11)
[2017-05-21] MEDS: LIDOCAINE 5% PATCH TD SCH (09:12)
[2017-05-21] MEDS: DILTIAZEM (CD) 180 MG CAP PO SCH (09:12)
--- NOTE | 2017-05-21 09:45 | PN ---
DATE: 05/21/2017 SUBJECTIVELY: The patient told me today she wants to leave immediately. The patient is willing to leave against medical advice. I instructed her that it would be better for her to stay to continue rehabilitation as she is improving. The patient states she cannot stand it and wishes to leave. No other events noted. VITALS: Blood pressure 127/80, respirations 19, pulse 71, temperature 98.3. PHYSICAL EXAMINATION: HEENT: Head is normocephalic. NECK: Supple. HEART: Regular rate. LUNGS: Show diminished breath sounds at the base. ABDOMEN: Soft. Nontender to palpation. No rebound or guarding. EXTREMITIES: Negative for clubbing or cyanosis. No edema. DERMATOLOGICAL: No rashes. MUSCULOSKELETAL: No joint effusion. NEUROLOGIC: No change in exam. MEDICATIONS: The patient's medications reviewed. LABORATORY DATA: Reviewed. Currently pending. ASSESSMENT AND PLAN: 1. Acute cerebrovascular accident with left sided hemiparesis. The patient is clinically stable, i mproving. Continue medical management. 2. Atrial fibrillation, rate controlled. Continue current treatment plan. 3. Hypertension. Continue current blood pressure regimen. 4. Nonoliguric acute kidney injury with a previously normal baseline creatinine. Etiology is secon [place] to hemodynamics from diuretic therapy and ARB effect. Renal function has been improving. Cont inue to monitor. 5. Urinary tract infection. Continue current antibiotic regimen. 6. Dermopathy. Continue to monitor. 7. Chronic pain syndrome. Continue current pain regimen. Defer to Dr. Wang for pain management. 8. History of coronary disease. Continue current medical management. 9. History of stomach and cervical cancer. 10. Gastrointestinal and deep venous thrombosis prophylaxis. Dictated By: CHRISTOPHER WISEMAN/HERON Conf#: [id number] DID#: [id number]
[2017-05-21 10:02] LABS: BASOPHIL # 0.1 10^3/ul (0.0-0.1); EOSINOPHILS # 0.1 10^3/ul (0.0-0.5); EOSINOPHILS % 1.5 % (0.0-7.0); HEMATOCRIT 40.1 % (37.0-47.0); LYMPHOCYTES # 1.4 10^3/ul (0.8-2.9); LYMPHOCYTES % 15.1 % (15.0-51.0); MEAN CORPUSCULAR HEMOGLOBIN 22.1 pg (29.0-33.0); MEAN CORPUSCULAR HGB CONC 29.9 g/dl (32.0-37.0); MEAN CORPUSCULAR VOLUME 73.7 fl (82.0-101.0); MONOCYTE # 0.9 10^3/ul (0.3-0.9); MONOCYTES % 10.1 % (0.0-11.0); NEUTROPHIL # 6.7 10^3/ul (1.6-7.5); NEUTROPHILS % 71.9 % (39.0-77.0); PLATELET COUNT 740 10^3/UL (140-415); RED BLOOD COUNT 5.44 10^6/ul (4.20-5.40); RED CELL DISTRIBUTION WIDTH 19.3 % (11.5-14.5); WHITE BLOOD COUNT 9.3 10^3/ul (4.8-10.8)
[2017-05-21 10:25] LABS: CALCIUM 10.1 mg/dl (8.4-10.2); CREATININE 1.04 mg/dl (0.44-1.00); MAGNESIUM 2.2 mg/dl (1.7-2.5); PHOSPHORUS 3.9 mg/dl (2.5-4.9); POTASSIUM 4.9 mmol/L (3.5-5.1)
--- NOTE | 2017-05-21 12:00 | CONS ---
Date/Time of Note Date/Time of Note DATE: 05/21/17 TIME: 11:55 Consult Date/Type/Reason Admit Date/Time May 16, 2017 at 22:06 Subjective Patient had wanted to leave hospital since yesterday. We had a family conference with and patient, and she thought [facility] was next week , and once she learned that [facility] is a month away, she agreed to stay. The dc goals of 1 person transfer, and min assist for self care activities and the safely trained in assistance were reviewed, and patient agreeable to d/c on 05/30. 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 Objective pulm-cta max assist transfer Vital Signs Date Time Temp Pulse Resp B/P Pulse Ox O2 Delivery O2 Flow Rate FiO2 05/21/17 02:00 98.3 71 19 127/80 98 05/20/17 20:50 Room Air Intake and Output 05/20/17 05/20/17 05/21/17 15:00 23:00 07:00 Intake Total 1200 ml Output Total 600 ml Balance 600 ml Results/Medications Result Diagram: 05/21/1791805/21/17918 Results 24 hrs Laboratory Tests Test 05/21/17 09:19 White Blood Count 9.3 Red Blood Count 5.44 H Hemoglobin 12.0 Hematocrit 40.1 Mean Corpuscular Volume 73.7 L Mean Corpuscular Hemoglobin 22.1 L Mean Corpuscular Hemoglobin Concent 29.9 L Red Cell Distribution Width 19.3 H Platelet Count 740 H Mean Platelet Volume 10.0 Neutrophils % 71.9 Lymphocytes % 15.1 Monocytes % 10.1 Eosinophils % 1.5 Basophils % 1.0 Nucleated Red Blood Cells % 0.0 Neutrophils # 6.7 Lymphocytes # 1.4 Monocytes # 0.9 Eosinophils # 0.1 Basophils # 0.1 Nucleated Red Blood Cells # 0.0 Sodium Level 142 Potassium Level 4.9 Chloride Level 102 Carbon Dioxide Level 26 Anion Gap 19 H Blood Urea Nitrogen 15 Creatinine 1.04 H Glucose Level 135 Calcium Level 10.1 Phosphorus Level 3.9 Magnesium Level 2.2 Medications Current Medications Docusate Sodium (Colace) 100 mg BID PO Last administered on 05/21/17t 09:09; Admin Dose 100 MG; Start 05/17/17 at 09:00 Senna (Senokot) 1 tab HS PO Last administered on 05/20/17 20:53; Admin Dose 1 TAB; Start 05/17/17 at 21:00 Bisacodyl (Dulcolax Supp) 10 mg DAILY PRN [place] CONSTIPATION; Start 05/17/17 at 02:30 Magnesium Hydroxide (Milk Of Mag) 30 ml BID PRN PO CONSTIPATION; Start at 02:30 Lactulose (Enulose) 20 gm DAILY PRN PO CONSTIPATION; Start 05/17/17 at 02:30 Acetaminophen (Tylenol Tab) 650 mg Q4H PRN PO PAIN Last administered on 20:53; Admin Dose 650 MG; Start 05/17/17 at 03:00 Apixaban (Eliquis) 2.5 mg BID PO Last administered on 05/21/17 09:10; Admin Dose 2.5 MG; Start 05/17/17 at 09:00 Atorvastatin Calcium (Lipitor) 40 mg DAILY@21 PO Last administered on 20:53; Admin Dose 40 MG; Start 05/17/17 at 21:00 Clopidogrel Bisulfate (plaVIX) 75 mg DAILY PO Last administered on 05/21/17 09:11; Admin Dose 75 MG; Start 05/17/17 at 09:00 Diltiazem HCl (Cardizem Cd) 180 mg DAILY PO Last administered on 05/21/17 09: 12; Admin Dose 180 MG; Start 05/17/17 at 09:00 Pantoprazole (Protonix Tab) 40 mg DAILY@06 PO Last administered on 05/21/17 06:00; Admin Dose 40 MG; Start 05/17/17 at 06:00 Nitroglycerin (Nitroglycerin (Sl Tab) 0.4 Mg) 1 tab Q5M PRN SL CHEST PAIN; Start 05/17/17 at 03:00 Metoprolol Succinate (Toprol Xl) 25 mg BID PO Last administered on 05/21/17 09:10; Admin Dose 25 MG; Start 05/17/17 at 09:00 Losartan Potassium (Cozaar) 100 mg DAILY PO Last administered on 05/18/17 09: 08; Admin Dose 100 MG; Start 05/17/17 at 09:00; Status Future Hold Zolpidem Tartrate (Ambien) 5 mg HS PRN PO INSOMNIA Last administered on 20:56; Admin Dose 5 MG; Start 05/17/17 at 08:00 Lidocaine (Lidoderm) 1 patch DAILY TD Last administered on 05/21/17 09:12; Admin Dose 1 PATCH; Start 05/17/17 at 10:30 Ciprofloxacin (Cipro) 500 mg BID@,18 PO Last administered on 05/21/17 06:00 ; Admin Dose 500 MG; Start 05/20/17 at 18:00 Acetaminophen/ Hydrocodone Bitart ([place] (5/325)) 1 tab Q8H PRN PO PAIN Last administered on 05/21/17 09:08; Admin Dose 1 TAB; Start 05/21/17 at 09:00 Assessment/Plan Additional Assessment/Plan rehab- 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 Continue interdisciplinary treatment plan, and incorporate "heating element repairer simulation " activities Atrial fibrillation. Hypertension. Pancreatitis. History of stomach cancer. History of cervical cancer. LEILA STEIN MD May 21, 2017 12:00
[2017-05-21 20:00] VITALS: BP 138/78; RESP 18
[2017-05-21] MEDS: ATORVASTATIN 40 MG TAB PO SCH (20:55)
[2017-05-21] MEDS: SENNA TAB PO SCH (20:55)
[2017-05-21 21:40] VITALS: PULSE 96
[2017-05-21] MEDS: ACETAMINOPHEN 325 MG TAB PO PRN (23:43)
[2017-05-22 02:00] VITALS: BP 125/75; RESP 18
[2017-05-22] MEDS: PANTOPRAZOLE (EC) 40 MG TAB PO SCH (06:37)
[2017-05-22] MEDS: HYDROCODONE/APAP (5/325) TAB PO PRN ×2 (06:37→12:27)
[2017-05-22] MEDS: CIPROFLOXACIN 500 MG TAB PO SCH ×2 (06:37→18:00)
[2017-05-22 07:30] VITALS: BP 125/93; PULSE 80; RESP 20
--- NOTE | 2017-05-22 08:36 | RADRPT ---
PROCEDURE: XR pelvis and bilateral hips. CLINICAL INDICATION: Status post fall, pain TECHNIQUE: AP pelvis, lateral views of the bilateral hips were performed. COMPARISON: None. FINDINGS: No fracture or dislocation is seen. Mild osteoarthrosis at both hips. The superior iliac bones are n ot included on the radiographs. IMPRESSION: No fracture or dislocation is seen. Mild osteoarthrosis at both hips. The superior iliac bones are n ot included on the radiographs. RPTAT: HJES .Albaro Henderson MD, Date Time Electronically viewed and signed by .Albaro Henderson MD, on 05/22/2017 00:51 .S/
[2017-05-22] MEDS: DILTIAZEM (CD) 180 MG CAP PO SCH (08:39)
[2017-05-22] MEDS: CLOPIDOGREL 75 MG TAB PO SCH (08:40)
[2017-05-22] MEDS: METOPROLOL (XL) 25 MG TAB PO SCH (08:40)
[2017-05-22] MEDS: DOCUSATE SODIUM 100 MG CAP PO SCH (08:41)
[2017-05-22] MEDS: APIXABAN 5 MG TABLET PO SCH (08:41)
[2017-05-22] MEDS: LIDOCAINE 5% PATCH TD SCH (08:43)
[2017-05-22] MEDS ORDERED: NICOTINE (21 MG/24 HR) PATCH TRANSDERM SCH (09:00)
--- NOTE | 2017-05-22 09:08 | PN ---
DATE: 05/22/2017 SUBJECTIVE: The patient is clinically stable. The patient did have a fall yesterday with no appar ent trauma. No other events noted. OBJECTIVE: VITAL SIGNS: Blood pressure 138/78, temperature 98.7, pulse 96, respiration 18. HEENT: Head is normocephalic. NECK: Supple. HEART: Regular rate. LUNGS: Show diminished breath sounds at base. ABDOMEN: Soft, nontender to palpation. No rebound or guarding. EXTREMITIES: Negative for clubbing, cyanosis, edema. DERMATOLOGIC: No rashes. MUSCULOSKELETAL: No joint effusions. NEUROLOGIC: No change in exam. MEDICATIONS: The patient's medications have been reviewed. LABORATORY DATA: White cell count 9.3, hemoglobin 10.0, hematocrit 40.1, platelet count is 740, sod ium 142. BUN 15, creatinine 1.04. ASSESSMENT AND PLAN: 1. Acute cerebrovascular accident with left-sided weakness. The patient is clinically stable, impr romulo. Continue to monitor. 2. Thrombocytosis, likely reactive. Continue to monitor. 3. Urinary tract infection. Continue current antibiotic regimen. 4. Nonoliguric acute kidney injury with previously baseline normal creatinine. Etiology is seconda ry to hemodynamics . Renal function is improving. Continue current treatment plan. 5. Hypertension. Continue current blood pressure regimen. 6. Atrial fibrillation, rate controlled. Continue current medical management. 7. Chronic pain syndrome. Continue current pain regimen. 8. History of coronary artery disease. Continue current medical management. 9. History of stomach and cervical cancer. 10. Gastrointestinal and deep venous thrombosis prophylaxis. 11. Tobacco use. Continue nicotine patch. Dictated By: CHRISTOPHER WISEMAN/HERON Conf#: [id number] DID#: [id number]
--- NOTE | 2017-05-22 10:08 | CONS ---
Date/Time of Note Date/Time of Note DATE: 05/22/17 TIME: 10:06 Consult Date/Type/Reason Admit Date/Time May 16, 2017 at 22:06 Subjective patient s/p fall after attemptingto get OOB on her own. She reports some upper back pain. Denies Headache or head trauma. Objective pulm-cta improving LUE strength moving all 4 extremities Vital Signs Date Time Temp Pulse Resp B/P Pulse Ox O2 Delivery O2 Flow Rate FiO2 05/22/17 02:00 98.7 84 18 125/75 93 05/21/17 21:40 28 05/20/17 20:50 Room Air Results/Medications Result Diagram: 05/21/1791805/21/17918 Medications Current Medications Docusate Sodium (Colace) 100 mg BID PO Last administered on 05/22/17 08:41; Admin Dose 100 MG; Start 05/17/17 at 09:00 Senna (Senokot) 1 tab HS PO Last administered on 05/21/17 20:55; Admin Dose 1 TAB; Start 05/17/17 at 21:00 Bisacodyl (Dulcolax Supp) 10 mg DAILY PRN [place] CONSTIPATION; Start 05/17/17 at 02:30 Magnesium Hydroxide (Milk Of Mag) 30 ml BID PRN PO CONSTIPATION; Start at 02:30 Lactulose (Enulose) 20 gm DAILY PRN PO CONSTIPATION; Start 05/17/17 at 02:30 Acetaminophen (Tylenol Tab) 650 mg Q4H PRN PO PAIN Last administered on 23:43; Admin Dose 650 MG; Start 05/17/17 at 03:00 Apixaban (Eliquis) 2.5 mg BID PO Last administered on 05/22/17 08:41; Admin Dose 2.5 MG; Start 05/17/17 at 09:00 Atorvastatin Calcium (Lipitor) 40 mg DAILY@21 PO Last administered on 20:55; Admin Dose 40 MG; Start 05/17/17 at 21:00 Clopidogrel Bisulfate (plaVIX) 75 mg DAILY PO Last administered on 05/22/17 08:40; Admin Dose 75 MG; Start 05/17/17 at 09:00 Diltiazem HCl (Cardizem Cd) 180 mg DAILY PO Last administered on 05/22/17 08: 39; Admin Dose 180 MG; Start 05/17/17 at 09:00 Pantoprazole (Protonix Tab) 40 mg DAILY@06 PO Last administered on 05/22/17 06:37; Admin Dose 40 MG; Start 05/17/17 at 06:00 Nitroglycerin (Nitroglycerin (Sl Tab) 0.4 Mg) 1 tab Q5M PRN SL CHEST PAIN; Start 05/17/17 at 03:00 Metoprolol Succinate (Toprol Xl) 25 mg BID PO Last administered on 05/22/17 08:40; Admin Dose 25 MG; Start 05/17/17 at 09:00 Losartan Potassium (Cozaar) 100 mg DAILY PO Last administered on 05/18/17 09: 08; Admin Dose 100 MG; Start 05/17/17 at 09:00; Status Future Hold Zolpidem Tartrate (Ambien) 5 mg HS PRN PO INSOMNIA; Start 05/17/17 at 08:00 Lidocaine (Lidoderm) 1 patch DAILY TD Last administered on 05/21/17 09:12; Admin Dose 1 PATCH; Start 05/17/17 at 10:30 Ciprofloxacin (Cipro) 500 mg BID@06,18 PO Last administered on 05/22/17 06:37 ; Admin Dose 500 MG; Start 05/20/17 at 18:00 Acetaminophen/ Aspirin/Caffeine (Excedrin) 2 tab Q6H PRN PO HEADACHE; Start at 18:30 Nicotine (Nicoderm 21 Mg/ 24hr) 1 patch DAILY TRANSDERM ; Start 05/22/17 at 09: 00 Acetaminophen/ Hydrocodone Bitart ([place] (5/325)) 1 tab Q4 PRN PO PAIN Last administered on 05/22/17 06:37; Admin Dose 1 TAB; Start 05/21/17 at 21:00 Assessment/Plan Additional Assessment/Plan rehab- 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 Activities as tolerated. Will check Tspine xray. Cognition- improving, but still with impulsivity Atrial fibrillation. Hypertension. Pancreatitis. History of stomach cancer. History of cervical cancer. LEILA STEIN MD May 22, 2017 10:08
[2017-05-22] MEDS ORDERED: NICOTINE POLACRILEX 2 MG GUM BUCCAL PRN (10:30)
--- NOTE | 2017-05-22 13:51 | RADRPT ---
PROCEDURE: XR Thoracic Spine. CLINICAL INDICATION: Back pain. TECHNIQUE: Two views. Frontal and lateral. COMPARISON: None available FINDINGS: There is normal stature and alignment of the vertebrae. There is no fracture. There is no lytic or blastic lesion. The disc height is normal. Small osteophytes are present in the mid and lower thoracic spine. The paravertebral soft tissues are unremarkable. IMPRESSION: 1. Mild degenerative change. 2. Otherwise unremarkable images of the thoracic spine. RPTAT: QQ .Fredrick Sweet MD, MD Date Time Electronically viewed and signed by .Fredrick Sweet MD, on 05/22/2017 13:51 .R/
--- NOTE | 2017-05-22 14:37 | CONS ---
Date/Time of Note Date/Time of Note DATE: 05/22/17 TIME: 14:36 Consult Date/Type/Reason Admit Date/Time May 16, 2017 at 22:06 Type of Consultation: id Objective Vital Signs Date Time Temp Pulse Resp B/P Pulse Ox O2 Delivery O2 Flow Rate FiO2 05/22/17 07:30 97.8 80 20 125/93 97 Room Air 05/21/17 21:40 28 Results/Medications Result Diagram: 05/21/1791805/21/17918 Medications Current Medications Docusate Sodium (Colace) 100 mg BID PO Last administered on 05/22/17 08:41; Admin Dose 100 MG; Start 05/17/17 at 09:00 Senna (Senokot) 1 tab HS PO Last administered on 05/21/17 20:55; Admin Dose 1 TAB; Start 05/17/17 at 21:00 Bisacodyl (Dulcolax Supp) 10 mg DAILY PRN [place] CONSTIPATION; Start 05/17/17 at 02:30 Magnesium Hydroxide (Milk Of Mag) 30 ml BID PRN PO CONSTIPATION; Start at 02:30 Lactulose (Enulose) 20 gm DAILY PRN PO CONSTIPATION; Start 05/17/17 at 02:30 Acetaminophen (Tylenol Tab) 650 mg Q4H PRN PO PAIN Last administered on 23:43; Admin Dose 650 MG; Start 05/17/17 at 03:00 Apixaban (Eliquis) 2.5 mg BID PO Last administered on 05/22/17 08:41; Admin Dose 2.5 MG; Start 05/17/17 at 09:00 Atorvastatin Calcium (Lipitor) 40 mg DAILY@21 PO Last administered on 20:55; Admin Dose 40 MG; Start 05/17/17 at 21:00 Clopidogrel Bisulfate (plaVIX) 75 mg DAILY PO Last administered on 05/22/17 08:40; Admin Dose 75 MG; Start 05/17/17 at 09:00 Diltiazem HCl (Cardizem Cd) 180 mg DAILY PO Last administered on 05/22/17 08: 39; Admin Dose 180 MG; Start 05/17/17 at 09:00 Pantoprazole (Protonix Tab) 40 mg DAILY@06 PO Last administered on 05/22/17 06:37; Admin Dose 40 MG; Start 05/17/17 at 06:00 Nitroglycerin (Nitroglycerin (Sl Tab) 0.4 Mg) 1 tab Q5M PRN SL CHEST PAIN; Start 05/17/17 at 03:00 Metoprolol Succinate (Toprol Xl) 25 mg BID PO Last administered on 05/22/17 08:40; Admin Dose 25 MG; Start 05/17/17 at 09:00 Losartan Potassium (Cozaar) 100 mg DAILY PO Last administered on 05/18/17 09: 08; Admin Dose 100 MG; Start 05/17/17 at 09:00; Status Future Hold Zolpidem Tartrate (Ambien) 5 mg HS PRN PO INSOMNIA; Start 05/17/17 at 08:00 Ciprofloxacin (Cipro) 500 mg BID@,18 PO Last administered on 05/22/17 06:37 ; Admin Dose 500 MG; Start 05/20/17 at 18:00 Acetaminophen/ Aspirin/Caffeine (Excedrin) 2 tab Q6H PRN PO HEADACHE; Start at 18:30 Acetaminophen/ Hydrocodone Bitart ([place] (5/325)) 1 tab Q4 PRN PO PAIN Last administered on 05/22/17 12:27; Admin Dose 1 TAB; Start 05/21/17 at 21:00 Nicotine Polacrilex ([place]) 2 mg Q4H PRN BUCCAL CONTROL WITHDRAWAL SYMPTOMS ; Start 05/22/17 at 10:30 Assessment/Plan Chief Complaint/Hosp Course SUBJECTIVE: Patient is awake, looks comfortable, no fevers PHYSICAL EXAMINATION: GENERAL: Obese, well-developed, middle-aged -[place] woman who is awake , in no distress. HEENT: Head atraumatic, normocephalic. Sclerae anicteric. Buccal mucosa dry. NECK: Supple. CHEST: Rise symmetrical. Breath sounds diminished to bases. HEART: S1, S2. ABDOMEN: Soft, bowel tones present. EXTREMITIES: Without cyanosis. ASSESSMENT: 1. Systemic inflammatory response syndrome with leukocytosis 2. UTI==> PSA, remains on Cipro 2. Acute cerebrovascular accident. 3. Atrial fibrillation. 4. Hypertension. 5. History of stomach and cervical cancer. PLAN: Remains stable, continue abx, fall precautions, acute rehab. Problems: KELSIE ANDERSEN [employer]LL SP[employer] May 22, 2017 14:37
--- NOTE | 2017-05-22 17:55 | PSY ---
Date/Time of Note Date/Time of Note DATE: 05/22/17 TIME: 17:53 Psychiatric Subjective Eval Consent Pt consented to telemedicine: Yes Subjective Evaluation Patient location: inpatient Reason for consult: hallucinations, pt requests to leave History of present illness 57 yo female, s/p CVA, hallucinating, demanding to leave. Capacity assessment requested. Pt refused to consent to telepsych. Allergies: Coded Allergies: No Known Allergy (Unverified , 05/21/17) Psychiatric Objective Eval Mental Status Examination: Laboratory Results Laboratory Tests Test 05/21/17 09:19 White Blood Count 9.310^3/ul Red Blood Count 5.4410^6/ul Hemoglobin 12.0g/dl Hematocrit 40.1% Mean Corpuscular Volume 73.7fl Mean Corpuscular Hemoglobin 22.1pg Mean Corpuscular Hemoglobin Concent 29.9g/dl Red Cell Distribution Width 19.3% Platelet Count 46525^3/UL Mean Platelet Volume 10.0fl Neutrophils % 71.9% Lymphocytes % 15.1% Monocytes % 10.1% Eosinophils % 1.5% Basophils % 1.0% Nucleated Red Blood Cells % 0.0/100WBC Neutrophils # 6.710^3/ul Lymphocytes # 1.410^3/ul Monocytes # 0.910^3/ul Eosinophils # 0.110^3/ul Basophils # 0.110^3/ul Nucleated Red Blood Cells # 0.010^3/ul Sodium Level 142mmol/L Potassium Level 4.9mmol/L Chloride Level 102mmol/L Carbon Dioxide Level 26mmol/L Anion Gap 19 Blood Urea Nitrogen 15mg/dl Creatinine 1.04mg/dl Glucose Level 135mg/dl Calcium Level 10.1mg/dl Phosphorus Level 3.9mg/dl Magnesium Level 2.2mg/dl Assessment and Plan Recommendation/Plan Follow-up/Disposition not completed - pt refused. MADHAV HOLLIDAY MD May 22, 2017 17:55
[2017-05-23] MEDS ORDERED: ACET500C5 PO (09:07)
--- NOTE | 2017-05-23 11:29 | DS ---
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 2. Hypertension. 3. Pancreatitis. 4. afib 5. History of stomach cancer; History of cervical cancer. 6. Impairments in self-care, mobility and cognition. Patient Condition: Fair Hospital Course Patient was admitted for comprehensive interdisciplinary acute rehabilitation. Patient made steady gains in Left sided motor strength and activity tolerance. Patient was impulsive, and did have a fall OOB while she attempted to get up on her own. Patient had requested to be discharged, but the need for assistance at home, in addition to need for improved mobility was reviewed with patient and . They had agreed to treatment plan after a family conference, however on 05/22 patient decided to leave A, without equipment of follow up plan. Home Meds Active Scripts Acetaminophen* (Tylophen*) 500 Mg Capsule, 1 CAP PO Q6H Y for PAIN AND OR ELEVATED TEMP, #20 CAP Prov:DEXTER INFANTE PA-C 05/23/17 Primary Care Provider MD SARITA Strange LIVA L. MD May 23, 2017 11:29
== END 2017-05-22 18:50 | disposition left against medical advice (07) | DRG 56 ==
LOC: VRC 22:06
PROVIDERS: ADMIT Physical Medicine & Rehabilitation; ATTEND Internal Medicine Nephrology
PROC: F07Z5ZZ Bed Mobility Treatment (ICD-10-PCS; principal; 2017-05-16)
PROC: F08Z2ZZ Grooming/Personal Hygiene Treatment (ICD-10-PCS; 2017-05-16)
PROC: F06Z6ZZ Communicative/Cognitive Integration Skills Treatment (ICD-10-PCS; 2017-05-16)
DX: I69.351 Hemiplegia and hemiparesis following cerebral infarction affecting right dominant side (principal); K85.90 Acute pancreatitis without necrosis or infection, unspecified; I48.91 Unspecified atrial fibrillation; G62.9 Polyneuropathy, unspecified; I10 Essential (primary) hypertension; N39.0 Urinary tract infection, site not specified; G89.4 Chronic pain syndrome; Z85.028 Personal history of other malignant neoplasm of stomach; Z85.41 Personal history of malignant neoplasm of cervix uteri; I25.10 Atherosclerotic heart disease of native coronary artery without angina pectoris; Z72.0 Tobacco use; D47.3 Essential (hemorrhagic) thrombocythemia
CPT/HCPCS: 71010; 72072; 73520; 80048; 80053; 81003; 82043; 83735; 84100; 84145; 84155; 84300; 85025; 87081; 87086; 92507; 92523; 92526; 92610; 94660; 97110; 97112; 97116; 97163; 97167; 97530; 97535; 97542; A4310

== ENCOUNTER 2017-05-23 06:41 | Emergency (ER) | payer BC ==
[~2017-05-23] VITALS: Wt 81.8 kg
--- NOTE | 2017-05-23 08:29 | RADRPT ---
PROCEDURE: XR Pelvis. CLINICAL INDICATION: Pain TECHNIQUE: Single AP view of the pelvis. COMPARISON: No prior studies are available for comparison. FINDINGS: Single frontal view of the pelvis demonstrates no displaced fracture. Both femoral heads are anatom ically seated. There is mild to moderate degenerative change of both hip joints. Pubic symphysis is intact. SI joints are within normal limits. Sacral arches are intact. IMPRESSION: No displaced fracture identified on this single frontal view of the pelvis. RPTAT: HH .Uriel Ledesma MD, Date Time Electronically viewed and signed by .Uriel Ledesma MD, on 05/23/2017 08:28 .W/
--- NOTE | 2017-05-23 08:37 | RADRPT ---
AMENDMENT: 05/23/2017 9:28:33 AM Uriel Ledesma Md Addendum: Outside CT from [facility] dated 04/22/2017 is now available for comparison. Of note, that the territory of infarction is substantially larger than noted on the previous CT scan wh ere only the posterior right frontal lobe was involved. This suggests interval extension / propagati on of the area of ischemia which now involves the right parietal and temporal lobes. Consider MRI fo r further evaluation. Call report was made to Dr. Ceballos on 05/23/2017 9:27:38 AM PROCEDURE: CT head CLINICAL INDICATION: Headache. Stroke 3 weeks ago. TECHNIQUE: Contiguous 2.5 mm axial images were obtained from the vertex to the skull base. No int ravenous contrast was administered. The calculated dose length product (DLP) = 630.20 mGy-cm. The CTDlvol = 44.93 mGy. One or more of the following dose reduction techniques were used: Automated e xposure control, adjustment of the mA and or KV according to patient size, or use of iterative recon struction technique. COMPARISON: None FINDINGS: Per history, the patient had a stroke 3 weeks ago. There is a large area of loss of pemberton-white matte r differentiation involving the right posterior frontal, right parietal, and right temporal lobes co nsistent with a subacute area of infarction. There is punctate area of hyperdense focus within the a fahad of low attenuation which may represent an area of laminar necrosis of the sulci.; however small punctate focus of hemorrhagic conversion cannot be excluded, follow-up CT a short interval or MRI... There is associated edema with mild mass effect and effacement of the sulci, but no midline shift. No other areas of acute/subacute infarct are identified. No intracranial hemorrhage is seen. The slick tricles are normal in size and configuration. There is small air-fluid level in the right sphenoid s inus retention cyst in the right maxillary sinus. Remaining paranasal sinuses are clear. The bony ca lvarium is unremarkable. IMPRESSION: 1. Large area of loss of pemberton-white matter differentiation involving the right posterior frontal, p arietal, temporal lobes consistent with the patient's history of subacute right MCA territory infarc t.. 2. Punctate focus of hyperdensity within the area of infarct may represent areas of laminar necrosi s versus petechial hemorrhages. Recommend a follow-up CT at short interval or MRI for further evalua tion. 3. No acute areas of territorial infarct or intracranial hemorrhage. 4. No mass effect or hydrocephalous. 5. small air-fluid level in the right sphenoid sinus RPTAT: HH .Uriel Ledesma MD, Date Time Electronically viewed and signed by .Uriel Ledesma MD, on 05/23/2017 09:28 .W/
--- NOTE | 2017-05-23 08:51 | RADRPT ---
PROCEDURE: XR Left Foot. CLINICAL INDICATION: Left foot pain. TECHNIQUE: Three views. Frontal, lateral, and oblique. COMPARISON: None. FINDINGS: There is no fracture or dislocation. The soft tissues are normal. Articular surfaces are intact. There is no lytic or blastic lesion. There is no radiopaque foreign body. IMPRESSION: 1. Normal images of the left foot. RPTAT: QQ .Fredrick Sweet MD, MD Date Time Electronically viewed and signed by .Fredrick Sweet MD, on 05/23/2017 08:50 .R/
--- NOTE | 2017-05-23 08:51 | RADRPT ---
PROCEDURE: XR Left Shoulder. CLINICAL INDICATION: Trauma due to a fall. Left shoulder pain. TECHNIQUE: Three views. Frontal internal rotation, frontal external rotation, and oblique. COMPARISON: No prior study is available for comparison. FINDINGS: There is no fracture or dislocation. The soft tissues are normal. Articular surfaces are intact. There is no lytic or blastic lesion. There is no radiopaque foreign body. IMPRESSION: 1. Normal images of the left shoulder. RPTAT: QQ .Fredrick Sweet MD, Date Time Electronically viewed and signed by .Fredrick Sweet MD, on 05/23/2017 08:51 .R/
[2017-05-23] MEDS ORDERED: ACET500C5 PO (09:07)
--- NOTE | 2017-05-23 09:08 | RADRPT ---
PROCEDURE: CT cervical spine CLINICAL INDICATION: Trauma with neck pain TECHNIQUE: Continues 2.5 mm axial images were obtained through the cervical spine. Images reconst ructed in coronal and sagittal plane. The calculated dose length product (DLP) = 446.77 mGy-cm. T he Exam CTDlvol = 22.14 mGy. One or more of the following dose reduction techniques were used: Auto mated exposure control, adjustment of the mA and or KV according to patient size, or use of iterativ e reconstruction technique. COMPARISON: None FINDINGS: Images through the cervical spine demonstrate no displaced fracture. No gross malalignment is seen. There is loss of the normal cervical lordosis. The vertebral body heights are maintained. There is mild degenerate change to space narrowing and C5-6, and C6-7. Facets are normally aligned. There is mild degenerative change at C1-C2 interval with secondary degenerative sclerosis. The prevertebral s oft tissues are unremarkable. There is moderate central lobular emphysema in the lung apices IMPRESSION: No displaced cervical spine fracture RPTAT: HH .Uriel Ledesma MD, Date Time Electronically viewed and signed by .Uriel Ledesma MD, on 05/23/2017 09:07 .W/
--- NOTE | 2017-05-23 12:26 | ERD ---
ER Documentation Chief Complaint Chief Complaint c/o head, back, l. hip, shilpa le pain s/p fall 2 days ago, +KO HPI 57-year-old female status post right frontal CVA comes in for reevaluation of a fall which she experienced when she was admitted here a few days ago. States that she is having headaches, as well as left shoulder pain, bilateral hip pain as well as pain in the left foot. The pain is diffuse, achy. She did not express a loss of consciousness or vomiting, and does not report any new neurologic changes. She comes in with left-sided weakness that is as a result of her recent stroke. ROS All systems reviewed and are negative except as per history of present illness. Medications Home Meds Active Scripts Acetaminophen* (Tylophen*) 500 Mg Capsule, 1 CAP PO Q6H Y for PAIN AND OR ELEVATED TEMP, #20 CAP Prov:DEXTER CEBALLOS PA-C 05/23/17 Allergies Allergies: Coded Allergies: No Known Allergy (Unverified , 05/23/17) PMhx/Soc History of Surgery: No Anesthesia Reaction: No Hx Neurological Disorder: Yes (SEIZURE) Hx Respiratory Disorders: Yes (RESPIRATORY FAILURE, S/P OF INTUBATION ) Hx Cardiac Disorders: Yes (HTN, CAD, AFIB) Hx Psychiatric Problems: No Hx Miscellaneous Medical Probl: Yes (CVA, HTN, atrial fib, lyperlipidemia) Hx Alcohol Use: No Hx Substance Use: No Hx Tobacco Use: No Smoking Status: Never smoker Physical Exam Vitals Vital Signs Date Time Temp Pulse Resp B/P Pulse Ox O2 Delivery O2 Flow Rate FiO2 05/23/17 06:47 98.6 101 16 147/96 100 Physical Exam General: Well-developed, well-nourished. The patient appears in no acute distress. HEENT: Head is normocephalic, No depressions, atraumatic. No scleral icterus. Pupils are equal, round, and reactive. Neck: Supple. Nontender. NO crepitus. Lungs: Clear to auscultation. Normal air movement. Heart: Regular rate and rhythm. S1 and S2 are normal. No murmurs, gallops, or rubs. Abdomen: Soft, nontender, nondistended. Bowel sounds are normoactive. Extremities: Patient has generalized low back tenderness in the lumbosacral regions. There is no leg shortening. Neurologic: Alert and oriented 3, there is left-sided paralysis within her baseline. Skin: Normal turgor. No rash or lesions. Results 24 hrs DIAGNOSTIC IMAGING REPORT Patient: ELI MYRICK : 1960 Age: 57 Sex: F MR #: [id number] DOS: 05/23/17 0704 Ordering MD: DEXTER CEBALLOS PA-C Location: [facility] Room/Bed: AMENDMENT: 05/23/2017 9:28:33 AM Uriel Ledesma Md Addendum: Outside CT from [facility] dated 04/22/2017 is now available for comparison. Of note, that the territory of infarction is substantially larger than noted on the previous CT scan where only the posterior right frontal lobe was involved. This suggests interval extension / propagation of the area of ischemia which now involves the right parietal and temporal lobes. Consider MRI for further evaluation. Call report was made to Dr. Ceballos on 05/23/2017 9:27:38 AM PROCEDURE: CT head CLINICAL INDICATION: Headache. Stroke 3 weeks ago. TECHNIQUE: Contiguous 2.5 mm axial images were obtained from the vertex to the skull base. No intravenous contrast was administered. The calculated dose length product (DLP) = 630.20 mGy-cm. The CTDlvol = 44.93 mGy. One or more of the following dose reduction techniques were used: Automated exposure control , adjustment of the mA and or KV according to patient size, or use of iterative reconstruction technique. COMPARISON: None FINDINGS: Per history, the patient had a stroke 3 weeks ago. There is a large area of loss of pemberton-white matter differentiation involving the right posterior frontal , right parietal, and right temporal lobes consistent with a subacute area of infarction. There is punctate area of hyperdense focus within the area of low attenuation which may represent an area of laminar necrosis of the sulci.; however small punctate focus of hemorrhagic conversion cannot be excluded, follow-up CT a short interval or MRI... There is associated edema with mild mass effect and effacement of the sulci, but no midline shift. No other areas of acute/subacute infarct are identified. No intracranial hemorrhage is seen. The ventricles are normal in size and configuration. There is small air-fluid level in the right sphenoid sinus retention cyst in the right maxillary sinus. Remaining paranasal sinuses are clear. The bony calvarium is unremarkable. IMPRESSION: 1. Large area of loss of pemberton-white matter differentiation involving the right posterior frontal, parietal, temporal lobes consistent with the patient's history of subacute right MCA territory infarct.. 2. Punctate focus of hyperdensity within the area of infarct may represent areas of laminar necrosis versus petechial hemorrhages. Recommend a follow-up CT at short interval or MRI for further evaluation. 3. No acute areas of territorial infarct or intracranial hemorrhage. 4. No mass effect or hydrocephalous. 5. small air-fluid level in the right sphenoid sinus RPTAT: HH .Uriel Ledesma MD, MD Date Time Electronically viewed and signed by .Uriel Ledesma MD, on 05/23/2017 09:28 .W/ CC: DEXTER CEBALLOS PA-C Radiology Main Line: [phone] DIAGNOSTIC IMAGING REPORT Patient: ELI MYRICK : 1960 Age: 57 Sex: F MR #: [id number] DOS: 05/23/17 0704 Ordering MD: DEXTER CEBALLOS PA-C [facility] Room/Bed: PROCEDURE: CT cervical spine CLINICAL INDICATION: Trauma with neck pain TECHNIQUE: Continues 2.5 mm axial images were obtained through the cervical spine. Images reconstructed in coronal and sagittal plane. The calculated dose length product (DLP) = 446.77 mGy-cm. The Exam CTDlvol = 22.14 mGy. One or more of the following dose reduction techniques were used: Automated exposure control, adjustment of the mA and or KV according to patient size, or use of iterative reconstruction technique. COMPARISON: None FINDINGS: Images through the cervical spine demonstrate no displaced fracture. No gross malalignment is seen. There is loss of the normal cervical lordosis. The vertebral body heights are maintained. There is mild degenerate change to space narrowing and C5-6, and C6-7. Facets are normally aligned. There is mild degenerative change at C1-C2 interval with secondary degenerative sclerosis. The prevertebral soft tissues are unremarkable. There is moderate central lobular emphysema in the lung apices IMPRESSION: No displaced cervical spine fracture RPTAT: HH .Uriel Ledesma MD, MD Date Time Electronically viewed and signed by .Uriel Ledesma MD, MD on 05/23/2017 09:07 .W/ CC: DEXTER CEBALLOS PA-C DIAGNOSTIC IMAGING REPORT Patient: ELI MYRICK : 1960 Age: 57 Sex: F MR #: [id number] DOS: 05/23/1704 Ordering MD: DEXTER CEBALLOS PA-C Location: [facility] Room/Bed: PROCEDURE: XR Left Shoulder. CLINICAL INDICATION: Trauma due to a fall. Left shoulder pain. TECHNIQUE: Three views. Frontal internal rotation, frontal external rotation , and oblique. COMPARISON: No prior study is available for comparison. FINDINGS: There is no fracture or dislocation. The soft tissues are normal. Articular surfaces are intact. There is no lytic or blastic lesion. There is no radiopaque foreign body. IMPRESSION: 1. Normal images of the left shoulder. RPTAT: QQ .Fredrick Sweet MD, MD Date Time Electronically viewed and signed by .Fredrick Sweet MD, MD on 05/23/2017 08:51 .R/ CC: DEXTER CEBALLOS- DIAGNOSTIC IMAGING REPORT Patient: ELI MYRICK : 1960 Age: 57 Sex: F MR #: [id number] DOS: 05/23/1704 Ordering MD: DEXTER CEBALLOS PA-C Location: [facility] Room/Bed: PROCEDURE: XR Pelvis. CLINICAL INDICATION: Pain TECHNIQUE: Single AP view of the pelvis. COMPARISON: No prior studies are available for comparison. FINDINGS: Single frontal view of the pelvis demonstrates no displaced fracture. Both femoral heads are anatomically seated. There is mild to moderate degenerative change of both hip joints. Pubic symphysis is intact. SI joints are within normal limits. Sacral arches are intact. IMPRESSION: No displaced fracture identified on this single frontal view of the pelvis. RPTAT: HH .Uriel Ledesma MD, Date Time Electronically viewed and signed by .Uriel Ledesma MD, MD on 05/23/2017 08:28 .W/ CC: DEXTER CEBALLOS PA-C DIAGNOSTIC IMAGING REPORT Patient: ELI MYRICK : 1960 Age: 57 Sex: F MR #: [id number] DOS: 05/23/17 0735 Ordering MD: DEXTER CEBALLOS PA-C Location: [facility] Room/Bed: PROCEDURE: XR Left Foot. CLINICAL INDICATION: Left foot pain. TECHNIQUE: Three views. Frontal, lateral, and oblique. COMPARISON: None. FINDINGS: There is no fracture or dislocation. The soft tissues are normal. Articular surfaces are intact. There is no lytic or blastic lesion. There is no radiopaque foreign body. IMPRESSION: 1. Normal images of the left foot. RPTAT: QQ .Fredrick Sweet MD, MD Date Time Electronically viewed and signed by .Fredrick Sweet MD, MD on 05/23/2017 08:50 .R/ CC: DEXTER CEBALLOS PA-C Procedures/MDM 57 year old female comes in with headaches, left shoulder pain, left foot pain, bilateral hip pain after the patient fell in the hospital. The patient had a thoracic x-ray and a hip x-ray that were normal. X-ray are normal today, Ct results were discussed with Dr Lopez, her neurolgical changes have remain unchanged since she was discharged. No focal, acute neurologic changes noted upon examination. Patient was advised that the imaging results shows a stroke that is consistent with her history but no findings related to the fall/trauma. Patient at this time was informed of her results, she was advised to follow- up closely with her primary care doctor. Patient's blood pressure was elevated (>120/80) but appears stable without evidence of hypertension emergency or urgency. The patient was counseled about the risks of hypertension and urged to pursue outpatient monitoring and therapy within a week with their primary care physician. Departure Diagnosis: Primary Impression: Fall Additional Impressions: Headache Shoulder pain Left foot pain Patient Instructions: Sprain Foot, Headache, Unspecified, Fall Prevention Referrals: TIA LEON MD (PCP) Additional Instructions: Call your primary care doctor TOMORROW for an appointment during the next 1-2 days.See the doctor sooner or return here if your condition worsens before your appointment time. DEXTER CEBALLOS PA-C May 23, 2017 12:25
== END 2017-05-23 09:40 | disposition home or self-care (01) ==
LOC: FTE 06:41
DX: R51 Headache (principal); M25.512 Pain in left shoulder; M79.672 Pain in left foot; I10 Essential (primary) hypertension; I25.10 Atherosclerotic heart disease of native coronary artery without angina pectoris
CPT/HCPCS: 70450; 72125; 72170; 73030